=== PATIENT | male | born 1985 | race Caucasian/White ===

== ENCOUNTER 2016-07-14 18:37 | Emergency (ER) | payer BC, OTHER ==
--- NOTE | 2016-07-14 19:21 | ERNOTE ---
Medical Problem HPI - General Chief Complaint: Laceration Time Seen by Provider: 07/14/16 19:16 Source: patient Exam Limitations: no limitations - Immun/Allergies/Home Medications Immunizations: IMMUNIZATION HX Immunizations Up to Date Yes History of Influenza Vaccine No Hx Pneumococcal Vaccination No Allergies/Adverse Reactions: Allergies No Known Allergies Allergy (Unverified 07/14/16 18:57) Home Medications: HOME MEDICATIONS NK [No Home Medication] 07/14/16 [Last Taken Unknown] - History of Present History Narrative: Patient was cutting rhubarb at home and the knife slipped and he has a laceration to the tip of the left thumb. Patient has only a small pedicle holding the very tip of the left thumb in place. Patient denies any significant pain however. Timing: constant Severity: mild Review of Systems - Review of Systems Constitutional: Present: See HPI EYE: Present: no symptoms reported ENT: Present: no symptoms reported Respiratory: Present: no symptoms reported Cardiology: Present: no symptoms reported Gastrointestinal/Abdominal: Present: no symptoms reported Genitourinary: Present: no symptoms reported Musculoskeletal: Present: no symptoms reported Skin: Present: See HPI Neurological: Present: no symptoms reported Endocrine: Present: no symptoms reported Hematologic/Lymphatic: Present: no symptoms reported Psych: Present: no symptoms reported - Patient's Past Medical History Patient History - Medical: No pertinent hx Patient History - Cardiac/Respiratory: No pertinent hx Patient History - Cancer: Myeloma Patient History - Surgical Procedures: Cancer Surgery Patient History - Other: None - Social History Living Situations: home Abuse History: No History of abuse Psych History: No pertinent hx Smoking Status: Current every day smoker Have you smoked in the past 12 months: Yes Alcohol Use: none Drug Use: none - Immunizations Immunizations Up to Date: Yes Hx Pneumococcal Vaccination: No History of Influenza Vaccine: No Physical Exam - Physical Exam General Appearance: Present: wd/wn, alert, no apparent distress Eye Exam: Normal inspection: bilateral, PERRL: bilateral Ears, Nose, Throat: Present: normal ENT inspection, H, normal pharynx Neck: Present: normal inspection, nontender Respiratory: Present: no respiratory distress, normal breath sounds, no accessory muscle use, chest nontender, lungs clear Cardiovascular/Chest: Present: regular rate, rhythm, no murmur, normal peripheral pulses Gastrointestinal/Abdominal: Present: normal bowel sounds, nontender, nondistended, soft, no organomegaly Rectal Exam: Present: deferred Back Exam: Present: normal inspection, normal range of motion Extremity Exam: Present: non-tender, normal range of motion, no edema, other - near total avulsion laceration to the tip of the left thumb. Patient does have a small pedicle providing circulation. Neurological Exam: Present: alert, oriented, normal mood/affect Skin Exam: Present: normal color, warm/dry Lymphatic Exam: Present: no adenopathy ED Progress - Vital Signs Patient's Vital Signs:: I have reviewed the patient's vital signs. Vital Signs: Vital Signs 07/14/16 18:57 Temperature 36.8 C Pulse Rate 56 L Respiratory 14 Rate Blood Pressure 114/62 O2 Sat by Pulse 100 Oximetry - Progress/Reassessment Chief Complaint: Laceration Plan - Plan Plan: Patient had Dermabond placed to close the when the wound, were also applied to provide further stability to the area. I believe this will heal quicker this way in and putting stitches in which would like a strangulated the pedicle. Understood and was amenable to this course of action. Departure - Departure Clinical Impression: Laceration Disposition: Home self-care Condition: Good Instructions: Laceration Care, Adult, [id number]
--- OUTSIDE RECORDS SUMMARY | 2016-07-14 19:27 | XMS REPORT | Continuity of Care Document ---
:1985 Author Organization [facility] ([facility]) Address [place] [address] Phone [phone] Care Team Providers Name Role Phone Unavailable Primary Care Provider Unavailable Source Comments This disclosure is being made pursuant to the Care Everywhere program, applicable federal and state laws, and may not contain all informaitonavailable regarding this patient.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/17 site Other musculoskeletal symptoms referable to limbs(729.89) 12/13/2001 Social History Tobacco Use Types Packs/Day Years Used Date Never Assessed Last Filed Vital Signs Vital Sign Reading Time Taken Blood Pressure - - Pulse - - Temperature - - Respiratory Rate - - Height 1.76 m (5' 9.29") 12/13/2001 8:45 AM CDT Weight 62.497 kg (137 lb 12.5 oz) 12/13/2001 8:45 AM CDT Body Mass Index 20.18 12/13/2001 8:45 AM CDT Oxygen Saturation - - Plan of Care Health Maintenance Due Date Last Done Comments Hepatitis B Vaccine (1 of 3 - Primary Series) 1985 Tdap Vaccine 1996 Lipid Disorder Screening 06/02/2003 MMR Vaccine 06/02/2003 Td Vaccine 06/02/2003 Varicella Vaccine (1 of 2 - Adult - No Evidence of 06/02/2003 Immunity) Influenza Vaccine: Seasonal (#1) 09/24/2015 Results from Last 3 Months Not on file
[2016-07-14 19:46] VITALS: BP 110/68
== END 2016-07-14 19:44 | disposition home or self-care (01) ==
LOC: ER 18:37
PROC: 0HQGXZZ Repair Left Hand Skin, External Approach (ICD-10-PCS; principal; 2016-07-14)
DX: S61.012A Laceration without foreign body of left thumb without damage to nail, initial encounter (principal); W26.0XXA Contact with knife, initial encounter; Y93.G3 Activity, cooking and baking; Y92.009 Unspecified place in unspecified non-institutional (private) residence as the place of occurrence of the external cause